=== PATIENT | male | born 1965 | race Caucasian/White ===

== ENCOUNTER 2019-04-26 19:37 | Inpatient (IN) | payer BC, MEDICAID ==
[~2019-04-26] VITALS: Ht 162.6 cm; Wt 81.6 kg
[2019-04-26 19:37] VITALS: BP 240/137
[~2019-04-26 19:37] MED LIST: METO-251 PO
--- NOTE | 2019-04-26 20:26 | NUR ---
PT TAKEN TO BED 12
--- NOTE | 2019-04-26 20:28 | NUR ---
PT BIB SISTER C/O HIGH BP. PT STATES HE WAS REFFERED TO ER BY CLINIC FOR SYSTOLIC BP IN 230'S. PT DENIES CP, SOB, DIZZINES, BLURRED VISION OR HEADACHE. NO DISTRESS NOTED. PT STATES HE DOES NOT TAKE BP MEDS DUE TO LACK OF INSURANCE. DR CARPIO NOTIFIED OF PT CONDITION. PMH:HTN
[2019-04-26] MEDS ORDERED: NITROGLYCERIN 0.4 MG TAB SL ONE (20:55)
[2019-04-26] MEDS ORDERED: LABETALOL 100 MG/20 ML VIAL IVP ONE (20:55)
[2019-04-26] MEDS ORDERED: NACL 0.9% 1,000 ML IV SCH (21:15)
[2019-04-26 21:39] LABS: BASOPHILS % (AUTO) 0.5 % (0.0-2.0); EOSINOPHILS # (AUTO) 0.1 K/uL (0-0.4); EOSINOPHILS % (AUTO) 1.7 % (0.0-4.0); HEMATOCRIT 33.7 % (36-52); HEMOGLOBIN 11.4 g/dL (12.0-18.0); LYMPHOCYTES # (AUTO) 1.7 K/uL (2.0-11.5); LYMPHOCYTES % (AUTO) 24.4 % (20.5-51.1); MEAN CORPUSCULAR HEMOGLOBIN 30 pg (27-31); MEAN CORPUSCULAR HGB CONC 34 g/dL (33-37); MEAN CORPUSCULAR VOLUME 86.9 fL (80-94); MONOCYTES # (AUTO) 0.4 K/uL (0.8-1.0); NEUTROPHILS # (AUTO) 4.6 K/uL (1.8-7.7); NEUTROPHILS % (AUTO) 67.4 % (42.2-75.2); PLATELET COUNT (AUTO) 163 K/uL (140-450); RED BLOOD CELL COUNT(AUTO) 3.87 MIL/uL (4.20-6.10); RED CELL DISTRIBUTION WIDTH 14.5 % (11.6-13.7); WHITE BLOOD COUNT (AUTO) 6.9 K/uL (4.8-10.8)
--- NOTE | 2019-04-26 22:05 | NUR ---
PT AMBULATED TO RESTROOM WITH STEADY GAIT. BP DECREASED TO 194/114.
[2019-04-26 22:08] LABS: ALBUMIN 3.6 g/dL (3.4-5.0); ANION GAP 13.2 (8-16); CARBON DIOXIDE 26.7 mmol/L (21-32); TOTAL BILIRUBIN 0.7 mg/dL (0.0-1.0)
[2019-04-26 22:09] LABS: PROTHROMBIN TIME 10.1 secs (10.8-13.4)
[2019-04-26 22:45] LABS: POTASSIUM 2.9 mmol/L (3.5-5.1)
[2019-04-26] MEDS ORDERED: POTASSIUM CHLORIDE 10 MEQ TABER PO ONE (23:10)
[2019-04-26] MEDS ORDERED: POTASSIUM CHL 40 MEQ/ D5-1/2NS 1,000 ML IV ONE (23:10)
[2019-04-26] MEDS ORDERED: MAG SULF 2000 MG/WATER PREMIX 50 ML IV ONE (23:10)
[2019-04-26] MEDS: NACL 0.9% 1,000 ML IV SCH (23:49)
[2019-04-26] MEDS ORDERED: ACETAMINOPHEN 325 MG TAB PO PRN (23:50)
[2019-04-26] MEDS ORDERED: MORPHINE SULFATE 2 MG/ML SYR IVP PRN (23:50)
[2019-04-26] MEDS ORDERED: DOCUSATE SODIUM 100 MG GELCAP PO PRN (23:50)
[2019-04-26] MEDS ORDERED: ZOLPIDEM 5 MG TAB PO PRN (23:50)
[2019-04-26] MEDS ORDERED: HYDROcodone/APAP 5/325 MG 1 TAB TAB PO PRN (23:50)
[2019-04-26] MEDS ORDERED: ONDANSETRON 4 MG/2 ML VIAL IM/IVP PRN (23:50)
[2019-04-27 00:06] LABS: APPEARANCE,URINE CLEAR (CLEAR); BILIRUBIN,URINE NEGATIVE (NEGATIVE); BLOOD, URINE 1+ (NEGATIVE); COLOR,URINE YELLOW (YELLOW); LEUKOCYTE ESTERASE ,URINE NEGATIVE (NEGATIVE); NITRITE, URINE NEGATIVE (NEGATIVE); UGLUCOSE TRACE (NEGATIVE)
[2019-04-27 00:16] LABS: BARBITURATE, URINE NEG. ng/ml (NEG <=200); BENZODIAZEPINE, URINE NEG. ng/mL (NEG <=200); CANNABINOID, URINE NEG. ng/mL (NEG <=50); COCAINE, URINE NEG. ng/mL (NEG <=300); OPIATE, URINE NEG. ng/mL (NEG <=2000); PHENCYCLIDINE SCREEN,URINE NEG. ng/mL (NEG <=25)
[2019-04-27 00:50] VITALS: BP 196/108
--- NOTE | 2019-04-27 00:50 | NUR ---
Patient will be admitted to care of [facility]. Admited to TELE VIA GURNEY. Will go to room 112A. Belongings list completed. Report to BIENVENIDO MCKENZIE.
--- NOTE | 2019-04-27 00:50 | NUR ---
RECEIVED PATIENT FROM ED VIA [employer]. REPORT GIVEN BY ED NURSE KASSANDRA. PATIENT IS AMBULATORY. NO SOB OR DISTRESS NOTED. ON ROOM AIR. IV ACCESS ON RIGHT AC 20 GAUGE. PATENT, INTACT AND INFUSING WELL. SKIN IS INTACT. INITIAL ASSESSMENT DONE. BOARD UPDATED. BED IN LOW, SAFETY MEASURES IN PLACE. ORIENTED TO ROOM. MRSA SWAB DONE AND SENT TO LAB. BELONGINGS CHECKLIST SIGNED. CALL LIGHT PLACED WITHIN PATIENT REACH. WILL CONTINUE TO MONITOR PATIENT.
[2019-04-27] MEDS ORDERED: hydrALAZINE 20 MG/ML VIAL IVP PRN (00:55)
[2019-04-27] MEDS: LORazepam 2 MG/ML VIAL IM/IVP PRN (01:28)
[2019-04-27] MEDS ORDERED: METOPROLOL 25 MG TAB PO SCH (01:30)
[2019-04-27] MEDS ORDERED: CALCIUM CARB/VIT-D 500 MG/200 IU 1 TAB PO SCH (01:30)
--- NOTE | 2019-04-27 01:30 | NUR ---
PRN ATIVAN ADMINISTERED AT THIS TIME PER PATIENT REQUEST FOR ANXIETY. WILL CONTINUE TO MONITOR PATIENT.
[2019-04-27] MEDS ORDERED: BENZOCAINE/MENTHOL 1 LOZ MM PRN (01:35)
[2019-04-27] MEDS ORDERED: BENZOCAINE/MENTHOL 1 LOZ MM SCH (01:35)
--- NOTE | 2019-04-27 01:35 | NUR ---
PRN HYDRALAZINE INJ ADMINISTERED AT THIS TIME PER MD REQUEST FOR ELEVATED BP OF 201/111, LA 76. PATIENT AWAKE AND ALERT. NO DISTRESS NOTED. WILL CONTINUE TO MONITOR PATIENT.
[2019-04-27 04:04] LABS: CHOL/HDL RATIO 4.3 (1-4.5); FREE T4 (FREE THYROXINE) 0.97 ng/dL (0.76-1.46); MAGNESIUM 2.2 mg/dL (1.8-2.4); PHOSPHORUS 2.8 mg/dL (2.5-4.9); THYROID STIMULATING HORMONE 1.68 uIU/mL (0.34-3.74)
[2019-04-27 04:20] VITALS: BP 177/98
--- NOTE | 2019-04-27 04:30 | NUR ---
VITALS TAKEN AT THIS TIME. VISIBLE CHEST RISE AND FALL NOTED. WILL CONTINUE TO MONITOR PATIENT.
[2019-04-27 04:37] LABS: RBC,URINE 0-5 /HPF (0-5); WBC,URINE 0-5 /HPF (0-5)
--- NOTE | 2019-04-27 06:40 | NUR ---
PATIENT RESTING WITH EYES CLOSED. NO DISTRESS NOTED. CALL LIGHT WITHIN PATIENT REACH. WILL ENDORSE TO AM SHIFT NURSE FOR CONTINUITY OF CARE.
[2019-04-27 07:04] LABS: BASOPHILS % (AUTO) 0.4 % (0.0-2.0); EOSINOPHILS # (AUTO) 0.1 K/uL (0-0.4); EOSINOPHILS % (AUTO) 1.9 % (0.0-4.0); HEMATOCRIT 30.2 % (36-52); HEMOGLOBIN 10.3 g/dL (12.0-18.0); LYMPHOCYTES # (AUTO) 1.3 K/uL (2.0-11.5); LYMPHOCYTES % (AUTO) 21.7 % (20.5-51.1); MEAN CORPUSCULAR HEMOGLOBIN 30 pg (27-31); MEAN CORPUSCULAR HGB CONC 34 g/dL (33-37); MEAN CORPUSCULAR VOLUME 87.4 fL (80-94); MONOCYTES # (AUTO) 0.4 K/uL (0.8-1.0); MONOCYTES % (AUTO) 7.1 % (1.7-9.3); NEUTROPHILS % (AUTO) 68.9 % (42.2-75.2); PLATELET COUNT (AUTO) 162 K/uL (140-450); RED BLOOD CELL COUNT(AUTO) 3.46 MIL/uL (4.20-6.10); RED CELL DISTRIBUTION WIDTH 14.4 % (11.6-13.7); WHITE BLOOD COUNT (AUTO) 5.8 K/uL (4.8-10.8)
--- NOTE | 2019-04-27 07:05 | NUR ---
RECEIVED BEDSIDE REPORT FROM NIGHT NURSE, PT [id number], IV SITE RAC 20, INTRODUCE SELF, PT WENT BACK TO SLEEP, UPDATE WHITE BOARD, CALL LIGHT WITHIN REACH, SAFETY MEASURES IN PLACE, WILL CONTINUE TO MONITOR.
[2019-04-27 07:23] LABS: MAGNESIUM 2.4 mg/dL (1.8-2.4); PHOSPHORUS 2.9 mg/dL (2.5-4.9)
[2019-04-27 07:31] LABS: ANION GAP 12.8 (8-16); CARBON DIOXIDE 24.6 mmol/L (21-32); CREATININE 3.7 mg/dL (0.6-1.3); POTASSIUM 3.4 mmol/L (3.5-5.1)
[2019-04-27 08:00] VITALS: BP 164/93
--- NOTE | 2019-04-27 08:19 | NUR ---
PATIENT HAS BEEN SCREENED AND CATEGORIZED MODERATE NUTRITION RISK. PATIENT WILL BE SEEN WITHIN 3-5 DAYS OF ADMISSION. 04/29/19 05/01/[address]
[2019-04-27] MEDS: CALCIUM CARB/VIT-D 500 MG/200 IU 1 TAB PO SCH (08:53)
[2019-04-27] MEDS: METOPROLOL 25 MG TAB PO SCH ×2 (08:54→21:34)
[2019-04-27] MEDS: NIFEdipine 60 MG TABER PO SCH (08:54)
--- NOTE | 2019-04-27 08:56 | NUR ---
GAVE PT ORDERED MEDICATION, MEDICATION EDUCATION GIVEN, PT VERBALIZED UNDERSTANDING, PT TOLERATED MEDICATION, NO SIGNS OF DISTRESS NOTED, CALL LIGHT WITHIN REACH.
--- NOTE | 2019-04-27 11:21 | NUR ---
PT OFF UNIT FOR CT OF THE HEAD.
[2019-04-27] MEDS: NACL 0.9% 1,000 ML IV SCH (11:27)
--- NOTE | 2019-04-27 11:45 | NUR ---
PT BACK IN ROOM, PT IS STABLE
[2019-04-27 12:00] VITALS: BP 177/98
--- NOTE | 2019-04-27 14:15 | NUR ---
PT IS ASLEEP IN ROOM, PT IS STABLE, RESPIRATIONS ARE EVEN AND UNLABORED ON ROOM AIR, CALL LIGHT WITHIN REACH.
--- NOTE | 2019-04-27 15:50 | NUR ---
PT ASLEEP IN BED, PT IS STABLE, RESPIRATIONS ARE EVEN AND UNLABORED ON ROOM AIR, CALL LIGHT WITHIN REACH.
[2019-04-27 16:00] VITALS: BP 186/99
[2019-04-27] MEDS: cloNIDine 0.1 MG TAB PO PRN (17:26)
--- NOTE | 2019-04-27 17:28 | NUR ---
ADMINISTER CATAPRES FOR ELEVATE BLOOD PRESSURE OF 186/99. MEDICATION EDUCATION GIVEN, PT VERBALIZED UNDERSTANDING, CALL LIGHT WITHIN REACH.
--- NOTE | 2019-04-27 19:15 | NUR ---
PT STABLE, GAVE REPORT TO NIGHT NURSE FOR CONTINUITY OF CARE.
--- NOTE | 2019-04-27 19:30 | NUR ---
RECEIVED BEDSIDE REPORT FROM AM SHIFT RN FOR PT'S CONTINUITY OF CARE. PT IS AAOX4, AMBULATORY, FAMILY MEMBER AT BEDSIDE, IS ON ROOM AIR, ON GROUT MACHINE TENDER, HAS RIGHT AC 20G WITH NS AT 60ML/HR, DENIES ANY PAIN AT THIS TIME. EXPLAINED TO PT AND FAMILY MEMBER THE CIRCULAR STUFFER ROUTINE, THEY VERBALIZED UNDERSTANDING. PT REQUESTS FOR SHOWER, WILL NOTIFY MD. SAFETY MEASURES IN PLACE, AND CALL LIGHT IS WITHIN REACH. PT'S NEEDS MET. WILL MONITOR PT THROUGHOUT SHIFT.
[2019-04-27 20:00] VITALS: BP 177/98
--- NOTE | 2019-04-27 21:00 | NUR ---
PT ASSISTED TO THE SHOWER, PROVIDED TOILETRIES NEEDED. PT TOLERATED ACTIVITY WELL.
--- NOTE | 2019-04-27 21:34 | NUR ---
ADMINISTERED SCHEDULED PO MEDICATIONS ORDERED. PT REQUESTED FOR ANTI ANXIETY MEDICATION PRIOR TO SHOWERING. PT REFUSED IT NOW, AND STATED HE SHOULD BE OK FOR THE NIGHT. PT MADE COMFORTABLE, AND NEEDS ARE MET.
--- NOTE | 2019-04-27 23:45 | NUR ---
PT STARTED THE 24 HOUR URINE COLLECTION. PT DISCARDED FIRST VOID, 2ND VOID AT 2345, PT TEACHING GIVEN, PT VERBALIZED UNDERSTANDING. WILL CONTINUE TO MONITOR PT.
[2019-04-28] VITALS: BP 146/87
--- NOTE | 2019-04-28 01:35 | NUR ---
PT COLLECTED URINE, REFILLED TUB WITH ICE, PT'S NEEDS MET AT THIS TIME. WILL CONTINUE TO MONITOR PT.
[2019-04-28 04:00] VITALS: BP 167/100
--- NOTE | 2019-04-28 04:00 | NUR ---
VS CHECKED AND CHARTED. PT NEED TO RECOLLECT 24HR URINE CREAT CLEARANCE, SUBSTATION MANAGER ACCIDENTALLY EMPTIED URINAL. PT, TREE PULLER, AND MD AWARE. PT'S NEEDS MET AT THIS TIME. WILL CONTINUE TO MONITOR PT.
--- NOTE | 2019-04-28 04:26 | NUR ---
PT STATES ANXIETY IS INCREASING. ADMINISTERED PRN IVP ANTI ANXIETY MEDICATION ORDERED. PT TEACHING GIVEN, PT VERBALIZED UNDERSTANDING.
[2019-04-28] MEDS: LORazepam 2 MG/ML VIAL IM/IVP PRN ×2 (04:39→22:03)
[2019-04-28] MEDS: NACL 0.9% 1,000 ML IV SCH ×2 (05:55→20:47)
--- NOTE | 2019-04-28 05:59 | NUR ---
HUNG NEW IVF BAG. PT ASLEEP WITH NO SIGNS OF DISTRESS. WILL ENDORSE TO AM SHIFT RN FOR PT'S CONTINUITY OF CARE.
[2019-04-28 07:16] LABS: BASOPHILS % (AUTO) 0.6 % (0.0-2.0); EOSINOPHILS # (AUTO) 0.2 K/uL (0-0.4); EOSINOPHILS % (AUTO) 2.8 % (0.0-4.0); HEMATOCRIT 31.6 % (36-52); HEMOGLOBIN 10.8 g/dL (12.0-18.0); LYMPHOCYTES # (AUTO) 1.5 K/uL (2.0-11.5); LYMPHOCYTES % (AUTO) 24.7 % (20.5-51.1); MEAN CORPUSCULAR HEMOGLOBIN 30 pg (27-31); MEAN CORPUSCULAR HGB CONC 34 g/dL (33-37); MEAN CORPUSCULAR VOLUME 87.7 fL (80-94); MONOCYTES # (AUTO) 0.4 K/uL (0.8-1.0); MONOCYTES % (AUTO) 6.9 % (1.7-9.3); PLATELET COUNT (AUTO) 168 K/uL (140-450); RED BLOOD CELL COUNT(AUTO) 3.61 MIL/uL (4.20-6.10); RED CELL DISTRIBUTION WIDTH 14.7 % (11.6-13.7); WHITE BLOOD COUNT (AUTO) 6.2 K/uL (4.8-10.8)
--- NOTE | 2019-04-28 07:16 | NUR ---
RECEIVED BEDSIDE SHIFT REPORT FROM ENDOSCOPY SUPPORT SPECIALIST NURSE FOR CONTINUATION OF CARE.
[2019-04-28 07:24] LABS: ANION GAP 13.3 (8-16); CARBON DIOXIDE 24.4 mmol/L (21-32); POTASSIUM 3.7 mmol/L (3.5-5.1)
[2019-04-28 07:35] LABS: CREATININE 3.9 mg/dL (0.6-1.3)
[2019-04-28 08:00] VITALS: BP 178/98
[2019-04-28] MEDS: NIFEdipine 60 MG TABER PO SCH (08:05)
[2019-04-28] MEDS: METOPROLOL 25 MG TAB PO SCH ×2 (08:06→20:04)
[2019-04-28] MEDS: CALCIUM CARB/VIT-D 500 MG/200 IU 1 TAB PO SCH (08:06)
[2019-04-28] MEDS: cloNIDine 0.1 MG TAB PO PRN (08:07)
--- NOTE | 2019-04-28 10:00 | NUR ---
PATIENT COMPLAINS OF STRESS, BLOOD PRESSURE CHECKED TO BE 178/78, INDICATION FOR CLONIDINE 0.1MG PO WELL OTHER BLOOD PRESSURE MEDICATIONS. VAL DENIES PAIN AT THIS TIME. PATIENT VERBALIZES ANXIETY, BUT REFUSES ANXIETY MEDICATION AT THIS TIME. URINE IS ON ICE FOR 24 HOUR URINE CATCH PER MD ORDER. WILL CONTINUE TO MONITOR.
[2019-04-28 12:00] VITALS: BP 167/94
--- NOTE | 2019-04-28 12:45 | NUR ---
BLOOD PRESSURE RECHECKED TO BE 164/86. MD AWARE. PATIENT TOOK A SHOWER, REPORTS FEELING REFRESHED, DENIES PAIN AT THIS TIME. WILL CONTINUE TO MONITOR.
--- NOTE | 2019-04-28 15:20 | NUR ---
PATIENT IS RESTING IN BED, NO SIGNS OF DISTRESS NOTED AT THIS TIME. ALL CONCERNS ADDRESSED, PATIENT EDUCATED ON THE IMPORTANCE OF THE CALL LIGHT. VERBALIZED UNDERSTANDING. WILL CONTINUE TO MONITOR.
[2019-04-28 16:00] VITALS: BP 162/93
--- NOTE | 2019-04-28 19:10 | NUR ---
BEDSIDE SHIFT REPORT GIVEN TO SHIFT SUPERINTENDENT CAUSTIC CRESYLATE NURSE FOR CONTINUATION OF CARE.
--- NOTE | 2019-04-28 19:11 | NUR ---
RECEIVED BEDSIDE REPORT FROM DAY SHIFT NURSEYUMIKO FOR PT'S CONTINUITY OF CARE. PT IS AAOX4, AMBULATORY, FAMILY MEMBER AT BEDSIDE, IS ON ROOM AIR, ON FINANCIAL OPERATIONS CLERK, HAS RIGHT AC 20G WITH NS AT 60ML/HR, PATENT, INTACT, AND ASYMPTOMATIC. DENIES ANY PAIN AT THIS TIME. SAFETY MEASURES IN PLACE, AND CALL LIGHT IS WITHIN REACH. PT'S NEEDS MET. BED IN LOW POSITION, CALL LIGHT WITHIN REACH.
[2019-04-28 20:00] VITALS: BP 184/100
--- NOTE | 2019-04-28 20:04 | NUR ---
GIVEN METOPROLOL MD ORDERED. PT TOLERATED WELL.
--- NOTE | 2019-04-28 20:46 | NUR ---
IV LEAKING, REMOVED IV. CANNULA INTACT. STARTED NEW IV ON LAC 22G, PATENT, INTACT AND ASYMPTOMATIC.
--- NOTE | 2019-04-28 21:15 | NUR ---
BP CHECKED, 163/88. WILL CONTINUE TO MONITOR.
--- NOTE | 2019-04-28 22:03 | NUR ---
PT C/O ANXIETY, GIVEN ATIVAN MD ORDERED. PT TOLERATED WELL.
[2019-04-29] VITALS: BP 159/94
--- NOTE | 2019-04-29 00:01 | NUR ---
PT SLEEPING IN BED COMFORTABLY, NO ACUTE DISTRESS NOTED. BP 159/94
--- NOTE | 2019-04-29 02:08 | NUR ---
PT SLEEPING IN BED COMFORTABLY. NO ACUTE DISTRESS NOTED.
[2019-04-29 04:00] VITALS: BP 143/81
--- NOTE | 2019-04-29 04:00 | NUR ---
VS CHECKED, WITHIN PT'S BASELINE. WILL CONTINUE TO MONITOR.
--- NOTE | 2019-04-29 06:33 | NUR ---
PT SLEEPING IN BED COMFORTABLY. PT IN STABLE CONDITION. WILL ENDORSE PT TO DAY SHIFT NURSE FOR CONTINUOUS CARE.
[2019-04-29 07:02] LABS: BASOPHILS % (AUTO) 0.5 % (0.0-2.0); EOSINOPHILS # (AUTO) 0.2 K/uL (0-0.4); EOSINOPHILS % (AUTO) 2.3 % (0.0-4.0); HEMATOCRIT 34.2 % (36-52); HEMOGLOBIN 11.4 g/dL (12.0-18.0); LYMPHOCYTES # (AUTO) 1.4 K/uL (2.0-11.5); LYMPHOCYTES % (AUTO) 20.8 % (20.5-51.1); MEAN CORPUSCULAR HEMOGLOBIN 30 pg (27-31); MEAN CORPUSCULAR HGB CONC 33 g/dL (33-37); MEAN CORPUSCULAR VOLUME 88.4 fL (80-94); MONOCYTES # (AUTO) 0.4 K/uL (0.8-1.0); MONOCYTES % (AUTO) 6.7 % (1.7-9.3); NEUTROPHILS # (AUTO) 4.7 K/uL (1.8-7.7); NEUTROPHILS % (AUTO) 69.7 % (42.2-75.2); PLATELET COUNT (AUTO) 179 K/uL (140-450); RED BLOOD CELL COUNT(AUTO) 3.87 MIL/uL (4.20-6.10); RED CELL DISTRIBUTION WIDTH 14.5 % (11.6-13.7); WHITE BLOOD COUNT (AUTO) 6.7 K/uL (4.8-10.8)
--- NOTE | 2019-04-29 07:13 | NUR ---
RECEIVED BEDSIDE SHIFT REPORT FROM MOTORBOAT OPERATOR NURSE FOR CONTINUATION OF CARE.
[2019-04-29 07:17] LABS: ANION GAP 15.6 (8-16); CREATININE 3.6 mg/dL (0.6-1.3); POTASSIUM 3.6 mmol/L (3.5-5.1)
[2019-04-29 07:22] LABS: MAGNESIUM 2.1 mg/dL (1.8-2.4); PHOSPHORUS 3.3 mg/dL (2.5-4.9)
[2019-04-29 08:00] VITALS: BP 185/108
[2019-04-29] MEDS: METOPROLOL 25 MG TAB PO SCH (08:31)
[2019-04-29] MEDS: CALCIUM CARB/VIT-D 500 MG/200 IU 1 TAB PO SCH (08:32)
[2019-04-29] MEDS: cloNIDine 0.1 MG TAB PO PRN (08:34)
[2019-04-29] MEDS ORDERED: NIFEdipine 90 MG TABER PO SCH (09:00)
--- NOTE | 2019-04-29 10:15 | NUR ---
PATIENT HAD A HIGH BLOOD PRESSURE THAT WAS COVERED WITH CLONIDINE 0.1 MG PO PRN FOR SYSTOLIC GREATER THAN 170. WILL RECHECK IN AN HOUR. MEDICATIONS TOLERATED WELL. PATIENT IS ANXIOUS REGARDING BEING UNABLE TO LOCATE BELONGINGS, CHARGE NURSE AND NURSING STAFF AWARE. DISCHARGE ORDER IN. WILL CONTINUE TO MONITOR FOR TREATMENT.
[2019-04-29] MEDS ORDERED: DOCU-299 PO ×2 (11:01→16:00)
[2019-04-29] MEDS ORDERED: NIFE90TE63 PO ×2 (11:01→16:00)
[2019-04-29] MEDS ORDERED: METO-251 PO ×3 (11:01→16:00)
[2019-04-29 12:00] VITALS: BP 162/88
--- NOTE | 2019-04-29 13:00 | NUR ---
PATIENT IS RESTING IN BED, CONTINUING TO SEARCH FOR BELONGINGS, BLOOD PRESSURE IS 161/82. PATIENT ENDORSES FEELINGS OF STRESS RELATED TO NOT BEING ABLE TO LOCATE BELONGINGS. PATIENT REQUESTED TO SPEAK WITH DIRECTOR. ADMINISTRATION AWARE. WILL CONTINUE TO MONITOR.
[2019-04-29] MEDS ORDERED: CLON0.1T46 TD ×2 (13:10→16:00)
[2019-04-29] MEDS ORDERED: cloNIDine-TTS1 0.1 MG/24 HR 1 EA PATCH TD SCH (14:00)
--- NOTE | 2019-04-29 14:15 | NUR ---
PATIENT DISCHARGED WITH DISCHARGE PAPERWORK, EDUCATED AND VERBALIZED UNDERSTANDING REGARDING FOLLOW UP APPOINTMENT WITH DR. COTA AND TO FOLLOW UP WITH A TV TECHNICIAN. MEDICATIONS PRESCRIPTION SENT ELECTRONICALLY TO PHARMACY IN [place]. PATIENT VERBALIZED UNDERSTANDING. REMOVED IV LINE AND PHI RELATED BRACELETS. CONCERNS ADDRESSED AT THIS TIME. SISTER AT BEDSIDE.
[2019-04-29] MEDS: NACL 0.9% 1,000 ML IV SCH (14:24)
== END 2019-04-29 14:15 | disposition home or self-care (01) | DRG 304 ==
LOC: MED 19:37 → MTU 23:49
PROVIDERS: ADMIT General Practice; ATTEND General Practice
DX: I16.1 Hypertensive emergency (principal); N17.0 Acute kidney failure with tubular necrosis; E87.6 Hypokalemia; R51 Headache; I13.10 Hypertensive heart and chronic kidney disease without heart failure, with stage 1 through stage 4 chronic kidney disease, or unspecified chronic kidney disease; N18.9 Chronic kidney disease, unspecified; J06.9 Acute upper respiratory infection, unspecified; E78.5 Hyperlipidemia, unspecified; E83.51 Hypocalcemia; T46.5X6A Underdosing of other antihypertensive drugs, initial encounter; J34.89 Other specified disorders of nose and nasal sinuses; Y92.89 Other specified places as the place of occurrence of the external cause; Z82.49 Family history of ischemic heart disease and other diseases of the circulatory system; Z88.0 Allergy status to penicillin; Z79.899 Other long term (current) drug therapy; Z83.3 Family history of diabetes mellitus; Z91.19 Patient's noncompliance with other medical treatment and regimen
CPT/HCPCS: 36415; 70450; 71045; 80048; 80053; 80305; 81001; 82150; 82570; 82575; 83036; 83690; 83735; 83880; 84100; 84439; 84443; 84484; 85025; 85610; 85730; 87081; 93005; 93976; 96365; 96375; 99285; J0360; J2060; J3475; J3490; J7030; Q0092